=== PATIENT | female | born 1955 | race Caucasian/White ===

== ENCOUNTER → 2019-07-30 | Outpatient (CLI) | payer BC | LOC: WCC 09:41 | PROVIDERS: ATTEND Plastic Surgery | DX: E11.65 Type 2 diabetes mellitus with hyperglycemia (principal); L03.115 Cellulitis of right lower limb; B96.89 Other specified bacterial agents as the cause of diseases classified elsewhere; C43.10 Malignant melanoma of unspecified eyelid, including canthus; C43.52 Malignant melanoma of skin of breast; K45.8 Other specified abdominal hernia without obstruction or gangrene; Z85.850 Personal history of malignant neoplasm of thyroid ==

== ENCOUNTER → 2019-08-06 | Outpatient (CLI) | payer BC | LOC: WCC 10:02 | PROVIDERS: ATTEND Plastic Surgery | DX: E11.65 Type 2 diabetes mellitus with hyperglycemia (principal); L03.115 Cellulitis of right lower limb; C43.10 Malignant melanoma of unspecified eyelid, including canthus; C43.52 Malignant melanoma of skin of breast; B96.89 Other specified bacterial agents as the cause of diseases classified elsewhere; K45.8 Other specified abdominal hernia without obstruction or gangrene; Z85.850 Personal history of malignant neoplasm of thyroid ==

== ENCOUNTER → 2019-08-13 | Outpatient (CLI) | payer BC | LOC: WCC 09:32 | PROVIDERS: ATTEND Plastic Surgery | DX: E11.65 Type 2 diabetes mellitus with hyperglycemia (principal); L03.115 Cellulitis of right lower limb; C43.52 Malignant melanoma of skin of breast; C43.10 Malignant melanoma of unspecified eyelid, including canthus; B96.89 Other specified bacterial agents as the cause of diseases classified elsewhere; K45.8 Other specified abdominal hernia without obstruction or gangrene; Z85.850 Personal history of malignant neoplasm of thyroid ==

== ENCOUNTER → 2019-09-03 | Outpatient (CLI) | payer BC | LOC: WCC 09:11 | PROVIDERS: ATTEND Plastic Surgery | DX: E11.65 Type 2 diabetes mellitus with hyperglycemia (principal); L03.115 Cellulitis of right lower limb; C43.10 Malignant melanoma of unspecified eyelid, including canthus; C43.52 Malignant melanoma of skin of breast; K45.8 Other specified abdominal hernia without obstruction or gangrene; B96.89 Other specified bacterial agents as the cause of diseases classified elsewhere; Z85.850 Personal history of malignant neoplasm of thyroid ==